=== PATIENT | male | born 1995 | race Caucasian/White ===

== ENCOUNTER 2018-07-16 19:48 | Inpatient (IN) | payer OTHER ==
[2018-07-16 20:42] LABS: PLATELET COUNT 333 10^3/uL (150-400)
--- NOTE | 2018-07-16 20:51 | EDPHY ---
H & P Smoking Status: Never smoked Time Seen by Provider: 07/16/18 20:49 HPI/ROS: CHIEF COMPLAINT: Depression HISTORY OF PRESENT ILLNESS: The patient is a 21-year-old male with a history of depression who presents to the emergency department with worsening symptoms. Patient states he was on Prozac for 2 years when he was 18. He would like to with medication made him feel he discontinued it. Patient has had worsening depression. He is going to graduate this year. He has no specific suicidal ideation or plan but just feels much worse. He denies significant drug or alcohol use. REVIEW OF SYSTEMS: 10 systems were reveiwed and are negative with the exception of the elements mentioned in the history of present illness. (Sherri Delong) Past Medical/Surgical History: Previous depression Past surgical history: Negative Social history: The patient drinks alcohol occasionally. He denies drug use. ( Sherri Delong) Physical Exam: Vitals noted GENERAL: No acute distress, alert. Tearful HEENT: Eyes normal to inspection, normal pharynx, no signs of dehydration. NECK: Normal, supple. RESPIRATORY: Clear to auscultation bilaterally, no rales, rhonchi or wheezing. CVS: Regular rate and rhythm, no rubs, murmurs, or gallops. ABDOMEN: Soft, nontender, nondistended, no organomegaly. BACK: Normal to inspection, no CVA tenderness. SKIN: Normal color, no rash, warm, dry. No pallor. EXTREMITIES: No pedal edema, no calf tenderness, no Homans sign or cords, no joint swelling. NEURO/PSYCH: Alert and oriented, depressed mood, normal motor sensory exam. No obvious cranial nerve deficit. (Sherri Delong S) Constitutional: Initial Vital Signs Temperature (C) 36.9 C 07/16/18 19:48 Heart Rate 72 07/16/18 19:48 Respiratory Rate 16 07/16/18 19:48 Blood Pressure 129/80 H 07/16/18 19:48 O2 Sat (%) 96 07/16/18 19:48 O2 Delivery Mode Room Air Allergies/Adverse Reactions: No Known Allergies Allergy (Unverified 07/16/18 19:50) Home Medications: Medication Instructions Recorded NK [No Known Home Meds] 07/16/18 Medical Decision Making ED Course/Re-evaluation: In the emergency department I discussed possible etiologies with the patient. I answered all his questions. Laboratory studies were obtained. Patient's CBC and chemistry unremarkable. Alcohol was negative. Tox screen was negative. Psychiatric Services were consulted 2300: Patient is signed out to at change of shift. (Sherri Delong) 12:31 a.m.- I received sign-out on this patient at approximately 11:00 p.m.. He has been stable during this time. He has been accepted to [address] White and I have completed the EMTALA form for his transfer there. ( Lashawn Suggs) Differential Diagnosis: My differential includes but is not limited to depression, anxiety, suicidal ideation,se, alcohol abuse (Sherri Delong) - Data Points Laboratory Results: Laboratory Results 07/16/18 20:29 07/16/18 20:29 07/16/18 07/16/18 07/16/18 20:34 20:29 20:29 WBC 6.86 10^3/uL 10^3/uL (3.80-9.50) RBC 5.11 10^6/uL 10^6/uL (4.40-6.38) Hgb 15.6 g/dL g/dL (13.7-17.5) Hct 44.7 % % (40.0-51.0) MCV 87.5 fL fL (81.5-99.8) MCH 30.5 pg pg (27.9-34.1) MCHC 34.9 g/dL g/dL (32.4-36.7) RDW 11.7 % % (11.5-15.2) Plt Count 333 10^3/uL 10^3/uL (150-400) MPV 8.9 fL fL (8.7-11.7) Neut % (Auto) 67.1 % % (39.3-74.2) Lymph % (Auto) 24.1 % % (15.0-45.0) Bailey % (Auto) 7.1 % % (4.5-13.0) Eos % (Auto) 0.7 % % (0.6-7.6) Baso % (Auto) 0.7 % % (0.3-1.7) Nucleat RBC Rel Count 0.0 % % (0.0-0.2) Absolute Neuts (auto) 4.60 10^3/uL 10^3/uL (1.70-6.50) Absolute Lymphs (auto) 1.65 10^3/uL 10^3/uL (1.00-3.00) Absolute Monos (auto) 0.49 10^3/uL 10^3/uL (0.30-0.80) Absolute Eos (auto) 0.05 10^3/uL 10^3/uL (0.03-0.40) Absolute Basos (auto) 0.05 10^3/uL 10^3/uL (0.02-0.10) Absolute Nucleated RBC 0.00 10^3/uL 10^3/uL (0-0.01) Immature Gran % 0.3 % % (0.0-1.1) Immature Gran # 0.02 10^3/uL 10^3/uL (0.00-0.10) Sodium 139 mEq/L mEq/L (135-145) Potassium 4.4 mEq/L mEq/L (3.3-5.0) Chloride 103 mEq/L mEq/L (97-110) Carbon Dioxide 24 mEq/l mEq/l (22-31) Anion Gap 12 mEq/L mEq/L (8-16) BUN 29 mg/dL H mg/dL (7-23) Creatinine 1.2 mg/dL mg/dL (0.7-1.3) Estimated GFR > 60 Glucose 95 mg/dL mg/dL (70-100) Calcium 9.9 mg/dL mg/dL (8.5-10.4) Urine Opiates Screen NEGATIVE (NEGATIVE) Urine Barbiturates NEGATIVE (NEGATIVE) Ur Phencyclidine Scrn NEGATIVE (NEGATIVE) Ur Amphetamine Screen NEGATIVE (NEGATIVE) U Benzodiazepines Scrn NEGATIVE (NEGATIVE) Urine Cocaine Screen NEGATIVE (NEGATIVE) U Marijuana (THC) Screen NEGATIVE (NEGATIVE) Ethyl Alcohol < 10 mg/dL mg/dL (0-10) Departure - Departure Disposition: [facility] IP Clinical Impression: Suicidal ideation, Depression Condition: Good Instructions: Depression (ED) Referrals: NONE *PRIMARY CARE P,. [Primary Care Provider] - As per Instructions
--- NOTE | 2018-07-16 23:51 | ASMTTCLDSP ---
TLC Discharge Disposition Disposition: Answers: Admit Disposition Notes: Notes: In consultation with [facility] ED physician, Sherri Delong MD and on-call psychiatrist, Marty White MD, both concurred that pt appears to meet 27-65 criteria requiring psychiatric hospitalization as pt appears to be at risk of harm to self due to a mental illness condition. For inpatient Marty White MD admission, the following psychiatrist agreed to accept patient for admission to [facility] ([facility]): Hold initiated by: Answers: Psychiatrist Date Signed: 07/16/2018 11:51 PM Electronically Signed By:William Koenig
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
--- NOTE | 2018-07-17 00:39 | ASMTLCPROG ---
Notes Note: Notes: Called insurance company for authorization. Faxed clinicals are required, no one is avail to talk to at this hour. Filled out required notification form and faxed it and the clinicals. A copy of the faxed packet has been fax attached to all scripts. Date Signed: 07/17/2018 12:38 AM Electronically Signed By:William Koenig
[2018-07-17] MEDS ORDERED: NICOTINE POLACRILEX 2 MG GUM B PRN (01:53)
[2018-07-17] MEDS ORDERED: MAG HYDROX/AL HYDROX/SIMETH 30 ML UDCUP PO PRN (01:53)
[2018-07-17] MEDS ORDERED: MAGNESIUM HYDROXIDE 30 ML UDCUP PO PRN (01:53)
[2018-07-17] MEDS ORDERED: LORazepam 0.5 MG TAB PO PRN (01:53)
[2018-07-17] MEDS ORDERED: ACETAMINOPHEN 325 MG TAB PO PRN (01:53)
[2018-07-17] MEDS ORDERED: OLANZapine 5 MG TAB PO PRN (01:56)
--- NOTE | 2018-07-17 08:57 | ASMTBHMTP ---
Master Treatment Plan Master Treatment Plan Answers: Depressed Mood with for: Suicidal Ideation Date: 07/17/2018 Diagnosis on Admission: Major Depressive Disorder Expected length of stay: 3-5 Days Reason for admission: Notes: Per TLC Evaluation - Pt. is a 23 year old male, never , with no children, [employer] super senior, and history of manic depression. Patient's stated presenting problems: Notes: Was feeling really sad and depressed, last night got scared I'd hurt myself and checked myself in. Patient's goals for treatment: Notes: Get some help, try to fix myself so I don't have to go this again. Also, to be less hard on myself Patient's strengths: Notes: Work well with people Identify supports outside of hospital: Notes: Brother, parents, and grandparents Discharge criteria: Notes: Suicidal ideation will resolve and patient will have a plan to safely manage recurrent suicidal ideation. Initial disposition plan/considerations: Notes: Be with family. Stay with grandparents while continuing school. Master Treatment Plan Required Signatures Psychiatrist signature: Answers: Marty White MD: RN on-shift signature: Answers: RN: Patient signature: Answers: Patient: Date Signed: 07/17/2018 08:56 AM Electronically Signed By:Chelsey Carrasco
--- NOTE | 2018-07-17 14:15 | PDHOSCONS ---
History and Physical - Chief Complaint "I had a breakdown" - History of Present Illness 23 yo M who notes he has had depression since he was 17 or 18 years old, previously diagnosed with bipolar and coming in with complaints that he might hurt himself. He notes this has happened before but not recently this badly. He did not have a specific plan but the thoughts that he would want to end his life became so severe that he felt he had to seek help. He notes he is otherwise very healthy, eats well and works out daily. He does struggle with concerns about how he looks and notes that no matter how much he works out he always feels that he could 'do better' and 'look better' and that plays a role in his depression. He is also going to graduate college this year and has a lot of concerns about what he will do after that and this weighs on him as well. He has been on prozac in the past but notes that made him feel numb and angry, and he thinks that 'feeling nothing was worse than being sad.' History Information - Allergies/Home Medication List Allergies/Adverse Reactions: No Known Allergies Allergy (Unverified 07/16/18 19:50) Home Medications: NK [No Known Home Meds] 07/16/18 [Last Taken Unknown] I have personally reviewed and updated: family history, medical history, social history, surgical history - Past Medical History no pertinent PMH - Surgical History Additional surgical history: wisdom tooth removal - Family History Positive for: non-pertinent - Social History Smoking Status: Never smoked Alcohol Use: Rarely Drug Use: None Additional social history: college senior--majors in history and education Review of Systems Review of Systems: ROS: 10pt was reviewed & negative except for what was stated in HPI & below Physical Exam Physical Exam: Temp Pulse Resp BP Pulse Ox 36.5 C 65 14 121/76 H 98 07/17/18 02:00 07/17/18 02:00 07/17/18 02:00 07/17/18 02:00 07/17/18 02:00 Constitutional: no apparent distress, appears nourished Eyes: PERRL, EOMI Ears, Nose, Mouth, Throat: moist mucous membranes, hearing normal Cardiovascular: regular rate and rhythym, no murmur, rub, or gallop, No edema Respiratory: no respiratory distress, no rales or rhonchi Gastrointestinal: normoactive bowel sounds, soft, non-tender abdomen Genitourinary: no bladder fullness Skin: warm, normal color Musculoskeletal: full muscle strength Neurologic: AAOx3 Psychiatric: interacting appropriately, not anxious, not encephalopathic Lab Data & Imaging Review 07/16/18 20:07/16/18 20: WBC 6.86 10^3/uL (3.80-9.50) 07/16/18: RBC 5.11 10^6/uL (4.40-6.38) 07/16/18 20: Hgb 15.6 g/dL (13.7-17.5) 07/16/18: Hct 44.7 % (40.0-51.0) 07/16/18: MCV 87.5 fL (81.5-99.8) 07/16/18: MCH 30.5 pg (27.9-34.1) 07/16/18: MCHC 34.9 g/dL (32.4-36.7) 07/16/18: RDW 11.7 % (11.5-15.2) 07/16/18: Plt Count 333 10^3/uL (150-400) 07/16/18: MPV 8.9 fL (8.7-11.7) 07/16/18: Neut % (Auto) 67.1 % (39.3-74.2) 07/16/18: Lymph % (Auto) 24.1 % (15.0-45.0) 07/16/18: Stanton % (Auto) 7.1 % (4.5-13.0) 07/16/18: Eos % (Auto) 0.7 % (0.6-7.6) 07/16/18: Baso % (Auto) 0.7 % (0.3-1.7) 07/16/18: Nucleat RBC Rel Count 0.0 % (0.0-0.2) 07/16/18: Absolute Neuts (auto) 4.60 10^3/uL (1.70-6.50) 07/16/18:29 Absolute Lymphs (auto) 1.65 10^3/uL (1.00-3.00) 07/16/18 20:29 Absolute Monos (auto) 0.49 10^3/uL (0.30-0.80) 07/16/18 20:29 Absolute Eos (auto) 0.05 10^3/uL (0.03-0.40) 07/16/18 20:29 Absolute Basos (auto) 0.05 10^3/uL (0.02-0.10) 07/16/18 20:29 Absolute Nucleated RBC 0.00 10^3/uL (0-0.01) 07/16/18 20: Immature Gran % 0.3 % (0.0-1.1) 07/16/18 20: Immature Gran # 0.02 10^3/uL (0.00-0.10) 07/16/18 20:29 Sodium 139 mEq/L (135-145) 07/16/18 20:29 Potassium 4.4 mEq/L (3.3-5.0) 07/16/18 20:29 Chloride 103 mEq/L (97-110) 07/16/18 20:29 Carbon Dioxide 24 mEq/l (22-31) 07/16/18 20:29 Anion Gap 12 mEq/L (8-16) 07/16/18 20:29 BUN 29 mg/dL (7-23) H 07/16/18 20:29 Creatinine 1.2 mg/dL (0.7-1.3) 07/16/18 20:29 Estimated GFR > 60 07/16/18 20:29 Glucose 95 mg/dL (70-100) 07/16/18 20:29 Calcium 9.9 mg/dL (8.5-10.4) 07/16/18 20:29 Urine Opiates Screen NEGATIVE (NEGATIVE) 07/16/18 20:34 Urine Barbiturates NEGATIVE (NEGATIVE) 07/16/18 20:34 Ur Phencyclidine Scrn NEGATIVE (NEGATIVE) 07/16/18 20:34 Ur Amphetamine Screen NEGATIVE (NEGATIVE) 07/16/18 20:34 U Benzodiazepines Scrn NEGATIVE (NEGATIVE) 07/16/18 20:34 Urine Cocaine Screen NEGATIVE (NEGATIVE) 07/16/18 20:34 U Marijuana (THC) Screen NEGATIVE (NEGATIVE) 07/16/18 20:34 Ethyl Alcohol < 10 mg/dL (0-10) 07/16/18 20:29 Assessment & Plan Assessment: Depression (Acute) Suicidal ideation (Acute) 23 yo M with hx of depression vs bipolar admitted with suicidal ideation and worsening depression # suicidal ideation: patient currently does not have any active suicidality, agrees to reach out should this occur # depression NOS versus bipolar: patient cleared medically for treatment by psychiatry, no medical indication to avoid any particular treatment # pre renal azotemia: BUN and creatinine mildly elevated likely related to poor po intake in prior several days, push fluids, recheck with PCP after discharge Thank you for this consult. Medicine will be available peripherally if need should arise.
--- NOTE | 2018-07-17 14:57 | ASMTCMCOM ---
CM Note CM Note Notes: Pt. and CC completed MTP, signed and placed in chart. Pt. reports no current legal issues. Pt. reports using CBD oil topical lotion for his knees. Pt. stated he has the "occasional beer", adding he drinks 1-2 time a week and having 1-2 drinks per sitting. Pt. reports no alcohol use in the past 2 weeks. Pt. reports being a "health nut", and is willing to abstain from alcohol. Pt. reports this is his first hospitalization and does not have any mental health providers. Pt. denied SI, HI, AVH and paranoia. Pt. signed an KALYN for [facility], [place] ([phone]) Date Signed: 07/17/2018 02:56 PM Electronically Signed By:Chelsey Carrasco
--- NOTE | 2018-07-17 16:07 | BAPA ---
DATE OF SERVICE: 07/17/2018 CHIEF COMPLAINT: "I thought I would hurt myself or worse and came in." HISTORY OF PRESENT ILLNESS: The patient is a 23-year-old, man, never with no child luis miguel. He is a senior at . The patient presented to the emergency department because he was having worsening depression and thoughts of suicide. He said that he is having recent significant stressors including his upcoming graduation worried about what he is going to do after graduation. Does not h ave a job yet. Is not sure what he wants to do as a career and has been having some recent stress in his relationship with his girlfriend. He states that he has no specific plan or intent, but says nellie t he just feels "much worse" than he has felt in a long time. When this MD met with the patient and his family, including his mother and father and younger brother and the children's zoo caretaker, Chelsey, on t he inpatient Behavioral Health Services Unit, the patient was calm, pleasant, cooperative. He denied feeling depressed, helpless, hopeless, worthless, sad or anxious. He denied having thoughts plans o r intents to hurt himself currently, but states that he knows that he needs to get help and wants to be back on medication and he wants to get connected with an outpatient therapist so that he can deal with some of the stressors that are overwhelming him right now. MD spent a great deal of time answer ing the patient and his mother's questions about medications, including the risks, benefits, and side effects of different types of antidepressants. The patient has been on Prozac in the past. He says that he took it off and on for about 2 years. He says that it helped him not feel depressed, but he says that he felt emotionally numb. He said "I just could not feel anything when I was on it." Bonnie juan states that he does not want to be on another SSRI because he "does not want to have that feelin g again." He denied any other adverse effects from taking SSRI in the past. MD discussed options in cluding Wellbutrin and Effexor. MD answered the patient and his mother's numerous questions about me dications and also about other forms of therapy, including cognitive behavioral therapy and other typ es of individual psychotherapy. The patient stated he would like to do both a combination of medicat ion and individual therapy. He is willing to receive services through the [facility] at and the patient gave informed consent to start Wellbutrin while he was in the hospital. He said "I do not w ant to wait. I want to start something now." PAST PSYCHIATRIC HISTORY: The patient reports that he had previously been treated while he was in [employer] school for mood swings and a suicide attempt. He said when he was 18, he was on Prozac off and on for 2 years. He says that he did not like the way it made him feel because he was too emotionally n umb. He reports that he had a previous suicide attempt when he was 19 or 20 years old by hanging. S tates that he never disclosed his suicide attempt to his family or to any medical practice manager, alth ough he did drop out of college and moved back home because he was struggling, but never told his fam telma that he had attempted suicide. He reports more recently he has had thoughts about suicide, but s ays that he has never acted on those thoughts and not done anything else that he would consider an ac tual suicide attempt. The patient was also seeing a therapist when he was in high school, but says t hat he did not find therapy very helpful. The patient states that he has never been in a psychiatric hospital. ALLERGIES: The patient has no known drug allergies. CURRENT MEDICATIONS: The patient is currently not taking any prescription medications. LABORATORY DATA: White cell count was 6.86, hemoglobin 15.6, hematocrit 44.7, platelet count 333. So dium 139, potassium 4.4, chloride 103, BUN 29, creatinine 1.2, glucose 95, calcium 9.9. Urine drug s creen was negative for all drugs of abuse. Ethyl alcohol level was undetected. PAST MEDICAL HISTORY: The patient denies any previous medical issues. No current medical conditions . PAST SURGICAL HISTORY: No surgical history. SOCIAL HISTORY: Patient lives in [place] with his grandparents and a younger 19-year-old brother a lso attends [employer]. His parents and younger brother live in [place]. The patient is currently ma joring in history and education. He works part-time as a cheerleading and tumbling technology coach in [place] . He is also on the [employer] cheerleading team with his brother. FAMILY HISTORY: The patient denies any family history of mental illness or substance use. SUBSTANCE ABUSE HISTORY: The patient says that he drinks 1 to 2 beers a week. He denies any marijua na use. Denies any illicit drugs or any other recreational drugs. He does use CBD oil on his knees f or muscle stiffness. TRAUMA HISTORY: Patient denies any history of physical, emotional, or sexual abuse. LEGAL HISTORY: Patient denies any current legal issues. MENTAL STATUS EXAMINATION: This is a short, well-developed, appropriately groomed male wearing short s and a T-shirt. He has gauges in both ears. He is sitting on his bed. Family is also present in t he room including both of his parents and his younger brother. sales coordinator was also present dur ing the interview. MD did ask the patient if he wanted to talk in private without his family present and he said no, that he wanted his family to be there because his parents were supportive and he wan bela them to be involved in his treatment. He is alert and oriented x4. His affect is euthymic. His demeanor is appropriate. He makes good eye contact. His speech, rate and volume are normal. His i ntellectual function appears to be average. He denies feeling sad, helpless, hopeless, worthless, or anxious currently. He denies any thoughts, plans, or intents to hurt himself or anyone else. He de nies any symptoms of psychosis including denying auditory and visual hallucinations paranoid delusion s, ideas of reference. There are no signs or symptoms of jaime present. He does not have racing tho ughts or pressured speech. He denies ever having increase in goal-directed activity, decreased need for sleep, elevated elated mood, grandiose delusions, reckless and impulsive behavior for more than 4 days at a time. His thought process is linear and goal directed. His insight and judgment both see m to be fair. IMPRESSION: 1. Major depressive disorder, recurrent, severe, without psychotic features. 2. Psychosocial stressors include academic pressures, impending graduation, lack of future career go als, conflict with his girlfriend. PLAN: 1. Admit patient to the Inpatient Behavioral Health Services Unit on [address] on an M1 hold. 2. Monitor closely for safety. The patient is currently not exhibiting any signs of unsafe behavior . He denies any thoughts, plans, or intents to hurt himself or anyone else. 3. Continue to monitor and observe the patient. explained the risks, benefits, and side effects of multiple antidepressants including Wellbutrin. MD answered numerous questions from the patient an d his mother about medications as well as individual psychotherapy. The patient states that he would like to see an individual therapist at [facility] after he leaves the hospital. The patient also ga ve informed consent to start Wellbutrin XL. 4. MD specifically asked the patient about symptoms related to jaime. He denies experiencing any ma dustin symptoms for 4 more days at a time. He also denies having manic episodes during the time that he was taking Prozac, which was on and off for about 2 years. Given the fact that there is no family hi story of bipolar disorder, the patient did not have induction of manic episode with use of SSRI for a 2-year period of time, I think the likelihood that the patient has a bipolar disorder is very low an d therefore I would recommend starting him on Wellbutrin in order to treat his depression. 5. Estimated length of stay is 2 to 3 days. The patient is very concerned about missing his [employer] assignments. He states that he has tests tomorrow and will want an excuse from the instruction dean leland n order to make up those missed assignments and to retake those tests. The patient does have a very supportive family. He is planning on going back to staying in [place] with his grandparents and hi s younger brother after he discharges. Mother would like the patient to get cognitive behavioral the rapy in addition to his medications. Patient is open to this recommendation. /[id number]/MODL
[2018-07-18 07:02] VITALS: BP 110/61
[2018-07-18] MEDS ORDERED: buPROPion XL 150 MG TAB PO SCH (09:00)
--- NOTE | 2018-07-18 11:06 | BDS ---
REASON FOR ADMISSION: From the ED note dated 07/16/2018, patient presented to the ED with worsening symptoms of depression. The patient reported no specific suicidal ideation or plan, but just feels much worse. The patient denied drug or alcohol use. The patient was admitted involuntarily on an M1 hold due to being a danger to himself. The patient was admitted for safety, crisis, stabilization and medication management. ADMITTING DIAGNOSIS: Major depressive disorder, severe admission. ADMISSION PHYSICAL EXAM: Patient was seen on 07/17/2018, for a hospitalist H and P consult for medical clearance for inpatient Behavioral Health stay. The patient was medically cleared for inpatient psychiatric hospitalization and treatment. For further details, please refer to hospitalist's H and P consult dated 07/17/2018. ADMISSION LABS: CBC from 07/16/2018, within normal limits. Chemistry from , within normal limits except BUN was elevated at 29. Toxicology screen from 07/16/2018, negative for all substances of abuse and negative for ethyl alcohol. MAJOR PROCEDURES OR TESTS: None. HOSPITAL COURSE: The most prominent symptoms and behaviors while the patient was here were moderate depression. Treatment modalities utilized to target depression were milieu and group therapy. Wellbutrin XL 150 mg p.o. daily was started to target depression symptoms, was tolerated with no report of side effects and with good response. The patient has improved considerably with no signs of psychiatric symptoms and no psychiatric symptoms expressed at discharge. The patient reports he has improved since admission. States to be in stable condition. Feels safe to discharge and he contracts for safety. Patient's response to treatment was good. There were no adverse or unexpected results of treatment. The patient was safe throughout his stay, active in treatment, engaged in groups, and was appropriate with staff and other patients. The treatment team consensus is the patient is in stable condition. Has a safe discharge plan and is ready to discharge today. CONDITION AT DISCHARGE: Patient is in stable condition and is no longer a danger to self or others, and is not gravely disabled due to mental illness. Patient is no longer in need of inpatient level of care, and can be safely and effectively treated within the community. The patients level of risk at time of discharge is low. MSE: The patient is casually dressed and with good hygiene , and looks stated age. Patient is sitting, posture is upright, and position is relaxed. Patient appears awake, alert, and responds appropriately and reasonably during interview. Patient is engaged, relates well to interviewer, and emotional facial expression is appropriate to situation and changes appropriately with topic. Patient is cooperative, makes comfortable eye contact , and movements are voluntary, deliberate, coordinated, and smooth and even with no inappropriate movements. Patient makes laryngeal sounds effortlessly and shares conversation appropriately; pace of conversation is appropriate, and stream of talking is fluent; articulation is clear and understandable; word choice is effortless and appropriate for education level; completes sentences, occasionally pausing to think; rate and volume are appropriate for interview and setting. Patient reports mood as euthymic. Patients affect is stable with full variable range, congruent with mood, and appropriate to speech and circumstances. Patient has linear and logical thinking, with no loose associations, tangential thought, thought blocking, concrete thinking, or any other signs of formal thought disorder. Patient denies suicidal and homicidal ideation, and denies hallucinations and delusions. Patient appears to be a reliable historian with sound judgement and good insight into current condition. Patient has no apparent dysfunction in recent or remote memory noted , and no evidence of gross cognitive dysfunction noted at any point during the interview. DISCHARGE DIAGNOSIS: Major depressive disorder, severe. CURRENT MEDICATIONS: After reviewing options, risks and benefits, patient agrees to continue Wellbutrin XL 150 mg p.o. daily. The patient requests a prescription for Wellbutrin XL 150 mg p.o. daily at time of discharge. A prescription for 30 days is provided. The prescription is reviewed with the patient at time of discharge to ensure accuracy and patient understanding. DISPOSITION: The patient left hospital independently and voluntarily with his mother and father after family meeting. FOLLOWUP: sales support coordinator reports the appropriate outpatient follow-up services have been established and outpatient appointments have been scheduled. The patient received written instructions with times and dates of outpatient follow-up appointments. The following follow-up recommendations were provided to the patient at discharge: Continue psychotropic medications as prescribed and attend appointments as scheduled. Report any side effects to a psychiatric outpatient provider, a primary care provider, or other health medicare coordinator. Address any questions or problems concerning the psychotropic medications with a psychiatric outpatient provider, a primary care provider, or other health medicare coordinator. Contact [facility] or [facility], or go to the nearest emergency room, if you are ever a danger to yourself/others, or unable to care for yourself. As soon as possible, establish a routine medication management treatment with a psychiatric provider, establish routine therapy appointments, and follow-up with a primary care provider. LEGAL COURSE: The patient was admitted involuntarily on an M1 hold. The patient became voluntary and discharged today independently and voluntarily. ATTITUDE AT TIME OF DISCHARGE: The patient's attitude was positive at time of discharge and the patient reports looking forward to discharging today. The patient reports he feels safe to discharge, is no longer a danger to himself or others, is in stable condition, and contracts for safety. Patient states he will continue medications as prescribed, and establish medication management treatment with an outpatient provider after discharge. Patient reports he understands the information that has been provided to him, and he understands, accepts, and agrees to psychotropic medications. Patient describes internal protective factors as the coping skills he has learned while hospitalized here, and he plans to continue to practice these coping skills after discharge. FAMILY MEETING: This CARNIVAL WORKER met with patient and patient's parents at time of discharge to review patient's discharge plan. Patient's parents report patient has a safe discharge plan and is safe to discharge today. LAB AND STUDIES: At time of discharge the following labs were pending: fasting lipid panel. ADVANCED DIRECTIVES: There were no advance directives on file, and the patient was full code during this hospitalization. /[id number]/MODL MTDD
--- NOTE | 2018-07-18 11:29 | ASMTBHDC ---
Notes Note: Notes: CC confirmed client's discharge plan and follow up with [facility]. Follow up with: [facility] [address] [place] [address] Next Appt: July 21 (07/21/18) at 10:30am with Randi Beltran Additional Resources: [facility] [id number] [place] [address] Date Signed: 07/18/2018 11:28 AM Electronically Signed By:Matthew Redding
== END 2018-07-18 12:50 | disposition home or self-care (01) | DRG 885 ==
LOC: BBEH 07-17 01:40
PROVIDERS: ADMIT Psychiatry & Neurology Psychiatry; ATTEND Psychiatry & Neurology Psychiatry
DX: F33.2 Major depressive disorder, recurrent severe without psychotic features (principal); T43.226A Underdosing of selective serotonin reuptake inhibitors, initial encounter
CPT/HCPCS: 80305; G0480